=== PATIENT | male | born 1950 | race Caucasian/White ===

== ENCOUNTER 2019-03-12 10:04 | Emergency (ER) | payer OTHER ==
[~2019-03-12] VITALS: Ht 172.7 cm; Wt 91.0 kg
[2019-03-12 10:13] VITALS: BP 135/80
[2019-03-12] MEDS ORDERED: METHOCARBAMOL 750 MG TABLET ONE (10:46)
[2019-03-12] MEDS ORDERED: KETOROLAC 30 MG/1 ML ONE (10:46)
[2019-03-12] MEDS ORDERED: KETOROLAC 30 MG/1 ML IM ONE (11:00)
[2019-03-12] MEDS ORDERED: METHOCARBAMOL 750 MG TABLET PO ONE (11:00)
[2019-03-12] MEDS ORDERED: ONDANSETRON ODT 4 MG ONE (12:06)
[2019-03-12] MEDS ORDERED: HYDROcodone/APAP 5/325 TABLET ONE (12:06)
[2019-03-12] MEDS ORDERED: HYDROcodone/APAP 5/325 TABLET PO ONE (12:30)
[2019-03-12] MEDS ORDERED: ONDANSETRON ODT 4 MG PO ONE (12:30)
== END 2019-03-12 12:56 | disposition home or self-care (01) ==
LOC: EDBD 10:04 → ED 11:33
DX: M54.5 Low back pain (principal); I10 Essential (primary) hypertension; I25.2 Old myocardial infarction; E78.5 Hyperlipidemia, unspecified
CPT/HCPCS: 72110; 73502; 96372; 99284; J1885; Q0162